=== PATIENT | female | born 2005 | race Hispanic/Latino ===

== ENCOUNTER 2024-03-20 23:00 | Emergency (ER) | payer OTHER, SELFPAY ==
[2024-03-20 23:34] LABS: Bacteria/HPF None Seen HPF (None Seen); Bilirubin Negative (Negative); Blood, Urine 2+ (Negative); CAUTI Indications for Culture Dysuria,urgency,freq; Clarity Clear (Clear); Glucose, Urine (Dipstick) Normal (Negative); Ketone, Urine Negative (Negative); Leukocyte 25 Leu/uL (Negative); Nitrite Negative (Negative); Protein, Urine (Dipstick) 20 mg/dL (Neg-Trace); Specific Gravity, Urine 1.034 (1.002-1.036); Squamous Epithelial 21-50 HPF (0-3); WBC/HPF 0-3 HPF (0-3)
[2024-03-20 23:36] LABS: Urine Culture Reflex No No
[2024-03-20 23:52] LABS: #Basophils 0.06 10x3/uL (0.0-0.2); %Basophils 0.5 % (0.0-1.0); %Eosinophils 2.2 % (0.0-10.0); %Lymphocytes 23.7 % (28.0-48.0); %Monocytes 6.5 % (0.0-4.0); %Neutrophils 66.7 % (31.0-61.0); Hematocrit 37.4 % (36.0-47.0); Hemoglobin 12.8 g/dL (12.0-16.0); Mean Corpuscular HGB CONC 34.2 g/dL (32.0-36.0); Mean Corpuscular Hemoglobin 31.8 pg (25.0-35.0); Mean Platelet Volume 10.6 fL (7.4-10.4); Platelet Count 250 10x3/uL (130-400); RBC Distribution Width 12.7 % (11.5-14.5); Red Blood Cell (RBC) Count 4.02 mill/uL (4.00-5.20)
[2024-03-21 00:05] LABS: BHCG - Serum POSITIVE (NEGATIVE); Pregs Control Background? CLEAR/WHITE (CLR/WHITE); Pregs Control Bar Appear? YES (CONTROL BAR)
[2024-03-21 00:17] LABS: ALT (SGPT) 12 U/L (8-55); AST (SGOT) 18 U/L (5-30); Albumin 4.2 g/dL (3.5-5.0); Alkaline Phosphatase 56 U/L (40-100); Anion Gap 14 mmol/L (10-20); BUN (Urea Nitrogen) 9 mg/dL (8.4-21.0); Bilirubin, Total 0.3 mg/dL (0.2-1.2); Calc. Creatinine Clearance 0 mL/min (70-130); Carbon Dioxide 18 mmol/L (22-29); Chloride 109 mmol/L (98-107); Estimated GFR 129; Glucose 92 mg/dL (70-105); Protein, Total 7.2 g/dL (6.0-8.3); Sodium 137 mmol/L (136-145)
[2024-03-21] MEDS ORDERED: Acetaminophen 500 MG TAB ONE (00:31)
== END 2024-03-21 01:24 | disposition home or self-care (01) ==
LOC: ERS 23:00
DX: O20.0 Threatened abortion (principal); Z3A.01 Less than 8 weeks gestation of pregnancy
CPT/HCPCS: 36415; 80053; 81001; 84702; 84703; 85025; 99284

== ENCOUNTER 2024-10-20 19:49 | Emergency (ER) | payer SELFPAY ==
[2024-10-20 20:15] LABS: Bacteria/HPF None Seen HPF (None Seen); Bilirubin Negative (Negative); Blood, Urine 3+ (Negative); CAUTI Indications for Culture Dysuria,urgency,freq; Clarity Extra Turbid (Clear); Glucose, Urine (Dipstick) Normal (Negative); Ketone, Urine Negative (Negative); Leukocyte 75 Leu/uL (Negative); Nitrite Negative (Negative); Protein, Urine (Dipstick) 50 mg/dL (Neg-Trace); RBC/HPF Greater than 50 HPF (0-3); Urobilinogen Normal mg/dL (Less than 2); pH, Urine 8.5 (5.0-9.0)
[2024-10-20 20:17] LABS: Pregnancy Test - Urine (BHCG) Negative (Negative); Pregu Control Background? CLEAR/WHITE (CLR/WHITE); Pregu Control Bar Appear? YES (CONTROL BAR)
[2024-10-20 20:18] LABS: Urine Culture Reflex Yes Yes
== END 2024-10-20 22:52 | disposition left against medical advice (07) ==
LOC: ERS 19:49
DX: Z53.21 Procedure and treatment not carried out due to patient leaving prior to being seen by health care provider (principal)
CPT/HCPCS: 81001; 81025; 87086